=== PATIENT | male | born 1980 | race Caucasian/White ===

== ENCOUNTER 2022-05-19 15:42 | Emergency (ER) | payer MEDICAID, SELFPAY ==
--- NOTE | ~2022-05-19 | US_ITS ---
EXAMINATION: US ABDOMEN LIMITED CLINICAL INFORMATION: Abnormal liver function tests, right upper quadrant. COMPARISON: 12/28/2007 abdominal ultrasound. TECHNIQUE: Real-time imaging of the right upper quadrant abdominal viscera. FINDINGS: PANCREAS: Visualized portions unremarkable. LIVER: Diffuse increased echotexture without focal abnormality. GALLBLADDER: Small radiopaque calculus is seen near the gallbladder neck without mural thickening or pericholecystic fluid. COMMON BILE DUCT: Normal in caliber measuring 0.7 cm in diameter. RIGHT KIDNEY: 11.3 cm. Unremarkable. FREE FLUID: None. US/US abdomen limited IMPRESSION: 1. Hepatic steatosis without focal abnormality. 2. Cholelithiasis without evidence for acute cholecystitis.
[2022-05-19 16:06] VITALS: BP 152/75; PULSE 90; RESP 18; TEMP 36.8; O2SAT 96; BMI 29.0
--- NOTE | 2022-05-19 16:08 | ED_ITS ---
HPI - General Adult General Chief complaint: ETOH/Substance Use <JOSH Louis - Last Filed: 05/19/22 16:10> Stated complaint: Seeking detox <JOSH Louis - Last Filed: 05/19/22 16:10> Time Seen by Provider: 05/19/22 16:54 <JOSH Louis - Last Filed: 05/19/22 16:10> Source: patient and old records reviewed <JOSH Ventura - Last Filed: 05/19/22 17:59> Mode of arrival: ambulatory <JOSH Ventura - Last Filed: 05/19/22 17:59> Limitations: no limitations <JOSH Ventura - Last Filed: 05/19/22 17:59> History of Present Illness HPI narrative: 42 yo male, with past medical history of ETOH abuse and diabetes, who presents to the emergency department today seeking ETOH detox, last drink was today, currently asymptomatic. Patient reports that he he drinks alcohol daily, approximately 20 nips of bourbon, as well as multiple smirnoff ice smash beverages daily and is hoping to find a detox bed at [facility]. Patient reports that he called [facility] today and was instructed to come to the emergency department for further evaluation as they had no available beds today. Patient denies any history of withdrawal seizures in the past. He does admit to having alcohol withdrawal shakiness in the past. He reports that last week he was drinking alcohol and fell, was seen at [facility]. Does admit to having some soreness on his left flank. Denies any abdominal pain, nausea vomiting, diarrhea, headaches, or any other falls. Denies SI/HI. No other complaints or concerns at this time. <JOSH Ventura - Last Filed: 05/19/22 17:59> MD complaint: Etoh Detox <JOSH Ventura - Last Filed: 05/19/22 17:59> Related Data Home medications: Home Medications Medication Instructions Recorded Confirmed albuterol sulfate 90 mcg/actuation 2 puff inhalation Q4H PRN 05/19/22 05/19/22 aerosol inhaler (Ventolin HFA) Shortness Of Breath atorvastatin 10 mg tablet 1 tab PO DAILY 05/19/22 05/19/22 clonidine HCl 0.1 mg tablet 1 tab PO BID PRN anxiety 05/19/22 05/19/22 fluoxetine 20 mg capsule 1 cap PO DAILY 05/19/22 05/19/22 fluticasone propionate 50 1 spray intranasal DAILY 05/19/22 05/19/22 mcg/actuation nasal spray,suspension folic acid 1 mg tablet 1 tab PO DAILY 05/19/22 05/19/22 insulin glargine 100 unit/mL (3 18 unit subcut BEDTIME 05/19/22 05/19/22 mL) subcutaneous pen (Lantus Solostar U-100 Insulin) insulin lispro 100 unit/mL See Protocol subcut TID 05/19/22 05/19/22 subcutaneous solution lisinopril 10 mg tablet 1 tab PO DAILY 05/19/22 05/19/22 magnesium oxide 400 mg (241.3 mg 1 tab PO DAILY 05/19/22 05/19/22 magnesium) tablet multivitamin with folic acid 400 1 tab PO DAILY 05/19/22 05/19/22 mcg tablet (Daily-Deandre (with folic acid)) pantoprazole 40 mg tablet,delayed 1 tab PO BID 05/19/22 05/19/22 release simethicone 125 mg chewable tablet 1 tab PO BID PRN flatulence 05/19/22 05/19/22 (Gas Relief Extra Strength) thiamine HCl (vitamin B1) 100 mg 1 tab PO DAILY 05/19/22 05/19/22 tablet (Vitamin B-1) <JOSH Louis - Last Filed: 05/19/22 16:10> Allergies/adverse reactions: Allergies Allergy/AdvReac Type Severity Reaction Status Date / Time No Known Allergies Allergy Mild UNKNOWN Verified 05/19/22 16:06 <JOSH Louis - Last Filed: 05/19/22 16:10> Review of Systems Review of Systems: Yes all other systems are reviewed and are negative <JOSH Ventura - Last Filed: 05/19/22 17:59> PMF Social History Social History: Social History Advance Directives: No Advance Directives Information Provided: Yes <JOSH Louis - Last Filed: 05/19/22 16:10> Physical Exam ED Vital Signs: Vital Signs - 24 hr 05/19/22 16:06 05/19/22 17:55 Temperature 98.2 F Pulse Rate 90 88 Respiratory Rate 18 16 Blood Pressure 152/75 H 119/60 Pulse Oximetry 96 97 Oxygen Delivery Method Room Air Room Air BMI result Body Mass Index 29.0 <JOSH Louis Last Filed: 05/19/22 16:10> Vital Signs - 24 hr 05/19/22 16:06 05/19/22 17:55 Temperature 98.2 F Pulse Rate 90 88 Respiratory Rate 18 16 Blood Pressure 152/75 H 119/60 Pulse Oximetry 96 97 Oxygen Delivery Method Room Air Room Air BMI result Body Mass Index 29.0 <JOSH Ventura - Last Filed: 05/19/22 17:59> Appearance: Alert. Oriented X3. No acute distress. Appears intoxicated. Eyes: Pupils equal, round and reactive to light. EOMI; ENT: Pharynx normal. Neck: Normal inspection. Neck supple. CVS: Normal heart rate and rhythm. Pulses normal. Respiratory: No respiratory distress. Breath sounds normal. Abdomen: Soft, mild tenderness to the left upper quadrant, no rebound or guarding. +BS x4 Skin: Skin warm and dry. Normal skin color. Normal skin turgor. No rashes. Extremities: No lower extremity edema. Neuro: Oriented X 3. No motor deficit. No sensory deficit. No tremors <JOSH Ventura - Last Filed: 05/19/22 17:59> Course Course Course Narrative: RME performed by Terra Hernandes PA-C. Patient is a 42 year old male presenting to the emergency department requesting alcohol detox. Patient states that he is currently drinking 24 oz of beer and 20+ nips of bourbin. Patient states that he has been drinking today. States that he presented to [facility] today but they said they are out of beds - so they recommended he come to the hospital and stay until tomorrow morning when they can call [facility] and get him a bed. Labs ordered. Patient placed back in the waiting room pending room availability and results. <JOSH oLuis - Last Filed: 05/19/22 16:10> Medical Decision Making Medical Decision Making MDM Narrative: This is a 42-year-old male with a past medical history of ETOH abuse, who presents to the emergency department today seeking detox. Patient has no known history of alcohol withdrawal seizures, and has had alcohol withdrawal symptoms in the past. Patient is currently asymptomatic last drink was earlier today. He typically drinks 20 nips of alcohol and multiple mixed beverages per day. Care team evaluation seen at bedside, and patient agrees to seeking inpatient detox if they have bed. Bed search initiated. Patient with no nausea, vomiting, or abdominal pain, will repeat chemistry tomorrow AM. Will monitor CIWA, med rec ordered. patient placed in physician observation at 06:00PM. <JOSH Ventura - Last Filed: 05/19/22 17:59> Differential Diagnosis Differential Diagnoses: The differential diagnosis associated with the presentation includes <JOSH Ventura - Last Filed: 05/19/22 17:59> Alcohol detox, electrolyte abnormality, dehydration, depression <JOSH Ventura - Last Filed: 05/19/22 17:59> Consult Healthcare Provider Management of the patient was discussed with: Formula Room Worker <JOSH Ventura - Last Filed: 05/19/22 17:59> CARE team <JOSH Ventura - Last Filed: 05/19/22 17:59> Lab Data Result Diagrams: 05/19/22 16:46 05/19/22 16:46 <JOSH Louis - Last Filed: 05/19/22 16:10> Labs: Lab Results 05/19/22 05/19/22 05/19/22 Range/Units 16:46 17:10 17:10 WBC 5.4 (4.8-10.8) X10*3/uL RBC 3.82 L (4.60-5.80) X10*6/uL Hgb 11.3 L (14.0-18.0) g/dl Hct 33.3 L (42.0-52.0) % MCV 87.2 (80.0-98.0) fL MCH 29.6 (27.0-33.0) pg MCHC 33.9 (31.0-36.0) g/dl RDW 21.3 H (11.0-16.0) % Plt Count 215 (160-400) X10*3/uL MPV 11.1 (9.4-12.4) fL Immature Gran % (Auto) 0.6 H (0.0-0.4) % Neut % (Auto) 45.6 (45-73) % Lymph % (Auto) 41.5 H (20-40) % Phillips % (Auto) 8.5 (2-11) % Eos % (Auto) 1.8 (0-4) % Baso % (Auto) 2.0 (0-2) % Lymph # (Auto) 2.3 (1.2-4.9) X10*3/uL Phillips # (Auto) 0.5 (0.1-1.2) X10*3/uL Eos # (Auto) 0.1 (0.0-0.4) X10*3/uL Baso # (Auto) 0.1 (0.0-0.2) X10*3/uL Abs Immat Gran (auto) 0.03 (0.00-0.03) X10*3/uL Absolute Neuts (auto) 2.5 (2.0-8.3) x10*3/uL Absolute Nucleated RBC 0.000 (0.0-0.012) X10*3/uL Nucleated RBC % (auto) 0.0 (0.0-0.2) /100WBC Sodium 137 (135-145) mmol/L Potassium 3.3 (3.3-5.1) mmol/L Chloride 99 (96-108) mmol/L Carbon Dioxide 24 (22-29) mmol/L Anion Gap 17 (12-20) BUN 11 (9-16) mg/dL Creatinine 0.83 (0.5-1.4) mg/dL Estim Creat Clear Calc 113.9 Estimated GFR > 60 Random Glucose 226 H (60-115) mg/dL Calcium 8.9 (8.4-10.2) mg/dL Magnesium 1.5 L (1.6-2.6) mg/dL Total Bilirubin 1.3 H (0.0-1.0) mg/dL AST 280 H (5-37) U/L ALT 150 H (0-40) U/L Alkaline Phosphatase 275 H (39-117) U/L Total Protein 6.9 (6.5-8.0) g/dL Albumin 3.9 (3.5-5.0) g/dL Urine Color Yellow Urine Appearance Clear Urine pH 6.0 (5.0-9.0) Ur Specific [place] 1.015 (1.005-1.025) Urine Protein Trace (Neg-Trace) mg/dL Urine Glucose (UA) >=1000 H (Negative) mg/dL Urine Ketones Negative (Negative) mg/dL Urine Blood Moderate (2+) H (Negative) Urine Nitrite Negative (Negative) Ur Leukocyte Esterase Moderate (2+) H (Negative) Urine RBC >20 H (0-2) /HPF Urine WBC 11-20 H (0-5) /HPF Ur Squamous Epith Cells 3-5 (0-2) /HPF Urine Bacteria None Seen (None Seen) Hyaline Casts 0-2 (0-2) /LPF Salicylates < 5.0 L (15-30) mg/dL Urine Opiates Screen (Not Detect) Urine Fentanyl Screen (Not Detect) Acetaminophen < 17 (<30) mcg/mL Ur Barbiturates Screen (Not Detect) Ur Phencyclidine Scrn (Not Detect) Ur Amphetamines Screen (Not Detect) U Benzodiazepines Scrn (Not Detect) Urine Cocaine Screen (Not Detect) U Marijuana (THC) Screen (Not Detect) Ethyl Alcohol 274 mg/dL 05/19/22 Range/Units 17:10 WBC (4.8-10.8) X10*3/uL RBC (4.60-5.80) X10*6/uL Hgb (14.0-18.0) g/dl Hct (42.0-52.0) % MCV (80.0-98.0) fL MCH (27.0-33.0) pg MCHC (31.0-36.0) g/dl RDW (11.0-16.0) % Plt Count (160-400) X10*3/uL MPV (9.4-12.4) fL Immature Gran % (Auto) (0.0-0.4) % Neut % (Auto) (45-73) % Lymph % (Auto) (20-40) % Phillips % (Auto) (2-11) % Eos % (Auto) (0-4) % Baso % (Auto) (0-2) % Lymph # (Auto) (1.2-4.9) X10*3/uL Phillips # (Auto) (0.1-1.2) X10*3/uL Eos # (Auto) (0.0-0.4) X10*3/uL Baso # (Auto) (0.0-0.2) X10*3/uL Abs Immat Gran (auto) (0.00-0.03) X10*3/uL Absolute Neuts (auto) (2.0-8.3) x10*3/uL Absolute Nucleated RBC (0.0-0.012) X10*3/uL Nucleated RBC % (auto) (0.0-0.2) /100WBC Sodium (135-145) mmol/L Potassium (3.3-5.1) mmol/L Chloride (96-108) mmol/L Carbon Dioxide (22-29) mmol/L Anion Gap (12-20) BUN (9-16) mg/dL Creatinine (0.5-1.4) mg/dL Estim Creat Clear Calc Estimated GFR Random Glucose (60-115) mg/dL Calcium (8.4-10.2) mg/dL Magnesium (1.6-2.6) mg/dL Total Bilirubin (0.0-1.0) mg/dL AST (5-37) U/L ALT (0-40) U/L Alkaline Phosphatase (39-117) U/L Total Protein (6.5-8.0) g/dL Albumin (3.5-5.0) g/dL Urine Color Urine Appearance Urine pH (5.0-9.0) Ur Specific [place] (1.005-1.025) Urine Protein (Neg-Trace) mg/dL Urine Glucose (UA) (Negative) mg/dL Urine Ketones (Negative) mg/dL Urine Blood (Negative) Urine Nitrite (Negative) Ur Leukocyte Esterase (Negative) Urine RBC (0-2) /HPF Urine WBC (0-5) /HPF Ur Squamous Epith Cells (0-2) /HPF Urine Bacteria (None Seen) Hyaline Casts (0-2) /LPF Salicylates (15-30) mg/dL Urine Opiates Screen Not Detected (Not Detect) Urine Fentanyl Screen Not Detected (Not Detect) Acetaminophen (<30) mcg/mL Ur Barbiturates Screen Not Detected (Not Detect) Ur Phencyclidine Scrn Not Detected (Not Detect) Ur Amphetamines Screen Not Detected (Not Detect) U Benzodiazepines Scrn Not Detected (Not Detect) Urine Cocaine Screen Not Detected (Not Detect) U Marijuana (THC) Screen POSITIVE H (Not Detect) Ethyl Alcohol mg/dL <JOSH Louis - Last Filed: 05/19/22 16:10> Lab Results 05/19/22 05/19/22 05/19/22 Range/Units 16:46 17:10 17:10 WBC 5.4 (4.8-10.8) X10*3/uL RBC 3.82 L (4.60-5.80) X10*6/uL Hgb 11.3 L (14.0-18.0) g/dl Hct 33.3 L (42.0-52.0) % MCV 87.2 (80.0-98.0) fL MCH 29.6 (27.0-33.0) pg MCHC 33.9 (31.0-36.0) g/dl RDW 21.3 H (11.0-16.0) % Plt Count 215 (160-400) X10*3/uL MPV 11.1 (9.4-12.4) fL Immature Gran % (Auto) 0.6 H (0.0-0.4) % Neut % (Auto) 45.6 (45-73) % Lymph % (Auto) 41.5 H (20-40) % Phillips % (Auto) 8.5 (2-11) % Eos % (Auto) 1.8 (0-4) % Baso % (Auto) 2.0 (0-2) % Lymph # (Auto) 2.3 (1.2-4.9) X10*3/uL Phillips # (Auto) 0.5 (0.1-1.2) X10*3/uL Eos # (Auto) 0.1 (0.0-0.4) X10*3/uL Baso # (Auto) 0.1 (0.0-0.2) X10*3/uL Abs Immat Gran (auto) 0.03 (0.00-0.03) X10*3/uL Absolute Neuts (auto) 2.5 (2.0-8.3) x10*3/uL Absolute Nucleated RBC 0.000 (0.0-0.012) X10*3/uL Nucleated RBC % (auto) 0.0 (0.0-0.2) /100WBC Sodium 137 (135-145) mmol/L Potassium 3.3 (3.3-5.1) mmol/L Chloride 99 (96-108) mmol/L Carbon Dioxide 24 (22-29) mmol/L Anion Gap 17 (12-20) BUN 11 (9-16) mg/dL Creatinine 0.83 (0.5-1.4) mg/dL Estim Creat Clear Calc 113.9 Estimated GFR > 60 Random Glucose 226 H (60-115) mg/dL Calcium 8.9 (8.4-10.2) mg/dL Magnesium 1.5 L (1.6-2.6) mg/dL Total Bilirubin 1.3 H (0.0-1.0) mg/dL AST 280 H (5-37) U/L ALT 150 H (0-40) U/L Alkaline Phosphatase 275 H (39-117) U/L Total Protein 6.9 (6.5-8.0) g/dL Albumin 3.9 (3.5-5.0) g/dL Urine Color Yellow Urine Appearance Clear Urine pH 6.0 (5.0-9.0) Ur Specific [place] 1.015 (1.005-1.025) Urine Protein Trace (Neg-Trace) mg/dL Urine Glucose (UA) >=1000 H (Negative) mg/dL Urine Ketones Negative (Negative) mg/dL Urine Blood Moderate (2+) H (Negative) Urine Nitrite Negative (Negative) Ur Leukocyte Esterase Moderate (2+) H (Negative) Urine RBC >20 H (0-2) /HPF Urine WBC 11-20 H (0-5) /HPF Ur Squamous Epith Cells 3-5 (0-2) /HPF Urine Bacteria None Seen (None Seen) Hyaline Casts 0-2 (0-2) /LPF Salicylates < 5.0 L (15-30) mg/dL Urine Opiates Screen (Not Detect) Urine Fentanyl Screen (Not Detect) Acetaminophen < 17 (<30) mcg/mL Ur Barbiturates Screen (Not Detect) Ur Phencyclidine Scrn (Not Detect) Ur Amphetamines Screen (Not Detect) U Benzodiazepines Scrn (Not Detect) Urine Cocaine Screen (Not Detect) U Marijuana (THC) Screen (Not Detect) Ethyl Alcohol 274 mg/dL 05/19/22 Range/Units 17:10 WBC (4.8-10.8) X10*3/uL RBC (4.60-5.80) X10*6/uL Hgb (14.0-18.0) g/dl Hct (42.0-52.0) % MCV (80.0-98.0) fL MCH (27.0-33.0) pg MCHC (31.0-36.0) g/dl RDW (11.0-16.0) % Plt Count (160-400) X10*3/uL MPV (9.4-12.4) fL Immature Gran % (Auto) (0.0-0.4) % Neut % (Auto) (45-73) % Lymph % (Auto) (20-40) % Phillips % (Auto) (2-11) % Eos % (Auto) (0-4) % Baso % (Auto) (0-2) % Lymph # (Auto) (1.2-4.9) X10*3/uL Phillips # (Auto) (0.1-1.2) X10*3/uL Eos # (Auto) (0.0-0.4) X10*3/uL Baso # (Auto) (0.0-0.2) X10*3/uL Abs Immat Gran (auto) (0.00-0.03) X10*3/uL Absolute Neuts (auto) (2.0-8.3) x10*3/uL Absolute Nucleated RBC (0.0-0.012) X10*3/uL Nucleated RBC % (auto) (0.0-0.2) /100WBC Sodium (135-145) mmol/L Potassium (3.3-5.1) mmol/L Chloride (96-108) mmol/L Carbon Dioxide (22-29) mmol/L Anion Gap (12-20) BUN (9-16) mg/dL Creatinine (0.5-1.4) mg/dL Estim Creat Clear Calc Estimated GFR Random Glucose (60-115) mg/dL Calcium (8.4-10.2) mg/dL Magnesium (1.6-2.6) mg/dL Total Bilirubin (0.0-1.0) mg/dL AST (5-37) U/L ALT (0-40) U/L Alkaline Phosphatase (39-117) U/L Total Protein (6.5-8.0) g/dL Albumin (3.5-5.0) g/dL Urine Color Urine Appearance Urine pH (5.0-9.0) Ur Specific [place] (1.005-1.025) Urine Protein (Neg-Trace) mg/dL Urine Glucose (UA) (Negative) mg/dL Urine Ketones (Negative) mg/dL Urine Blood (Negative) Urine Nitrite (Negative) Ur Leukocyte Esterase (Negative) Urine RBC (0-2) /HPF Urine WBC (0-5) /HPF Ur Squamous Epith Cells (0-2) /HPF Urine Bacteria (None Seen) Hyaline Casts (0-2) /LPF Salicylates (15-30) mg/dL Urine Opiates Screen Not Detected (Not Detect) Urine Fentanyl Screen Not Detected (Not Detect) Acetaminophen (<30) mcg/mL Ur Barbiturates Screen Not Detected (Not Detect) Ur Phencyclidine Scrn Not Detected (Not Detect) Ur Amphetamines Screen Not Detected (Not Detect) U Benzodiazepines Scrn Not Detected (Not Detect) Urine Cocaine Screen Not Detected (Not Detect) U Marijuana (THC) Screen POSITIVE H (Not Detect) Ethyl Alcohol mg/dL <JOSH Ventura - Last Filed: 05/19/22 17:59> Independent Interpretation I performed an independent interpretation of an: EKG <JOSH Ventura - Last Filed: 05/19/22 17:59> Interpretation: Normal sinus rhythm with ventricular rate of 84 beats per minute, no ST elevation or depression. No acute ischemic changes. <JOSH Ventura Last Filed: 05/19/22 17:59> Social Determinants Patient?s care significantly limited by Social Determinants of Health including: Inadequate housing <JOSH Ventura Last Filed: 05/19/22 17:59> Discharge Plan Discharge Clinical Impression: Alcoholic intoxication, Alcohol dependence <JOSH Louis Last Filed: 05/19/22 16:10> Patient Disposition: Still a Patient <JOSH Louis Last Filed: 05/19/22 16:10> Prescriptions: No Action clonidine HCl 0.1 mg tablet 1 tab PO BID PRN (Reason: anxiety) atorvastatin 10 mg tablet 1 tab PO DAILY thiamine HCl (vitamin B1) [Vitamin B-1] 100 mg tablet 1 tab PO DAILY magnesium oxide 400 mg (241.3 mg magnesium) tablet 1 tab PO DAILY pantoprazole 40 mg tablet,delayed release (DR/EC) 1 tab PO BID lisinopril 10 mg tablet 1 tab PO DAILY simethicone [Gas Relief Extra Strength] 125 mg tablet,chewable 1 tab PO BID PRN (Reason: flatulence) folic acid 1 mg tablet 1 tab PO DAILY insulin lispro 100 unit/mL solution See Protocol subcut TID Protocol: Insulin Correction Scale Less than or equal to 110 ---- Give (units): 0 111 to 150 Give (units): 0 151 to 200 Give (units): 2 201 to 250 Give (units): 4 251 to 300 Give (units): 6 301 to 350 Give (units): 8 Greater than 350 Give (units): 10 Call MD if Blood Glucose > : 350 albuterol sulfate [Ventolin HFA] 90 mcg/actuation HFA aerosol inhaler 2 puff INHALATION Q4H PRN (Reason: Shortness Of Breath) fluoxetine 20 mg capsule 1 cap PO DAILY fluticasone propionate 50 mcg/actuation spray,suspension 1 spray intranasal DAILY insulin glargine [Lantus Solostar U-100 Insulin] 100 unit/mL (3 mL) insulin pen 18 unit subcut BEDTIME multivitamin with folic acid [Daily-Deandre (with folic acid)] 400 mcg tablet 1 tab PO DAILY <JOSH Louis - Last Filed: 05/19/22 16:10>
--- NOTE | 2022-05-19 16:11 | ECG_ITS ---
Test Reason : DETOX, MEDICAL CLEARANCE Blood Pressure : / mmHG Vent. Rate : 084 BPM Atrial Rate : 084 BPM P-R Int : 184 ms QRS Dur : 068 ms QT Int : 370 ms P-R-T Axes : 052 -22 -05 degrees QTc Int : 437 ms Normal sinus rhythm Minimal voltage criteria for LVH, may be normal variant ( R in aVL ) Septal infarct , age undetermined Abnormal ECG When compared with ECG of 07-NOV-2009 08:00, Septal infarct is now Present Inverted T waves have replaced nonspecific T wave abnormality in Inferior leads Referred By: Terra Hernandes Electronically Signed By:Giorgio Yañez
--- NOTE | 2022-05-19 16:46 | PHA.MEDREC ---
Pharmacy Consult ? Medication Reconciliation Pharmacy has completed the medication reconciliation.
[2022-05-19 17:20] LABS: Appearance Urine Clear; Color Urine Yellow; Glucose Urine UA >=1000 mg/dL (Negative); Leukocyte Esterase Urine Moderate (2+) (Negative); Nitrite Urine Negative (Negative); Specific Gravity - Urine 1.015 (1.005-1.025); UMIC TRIGGER UA YES; Urine Blood Moderate (2+) (Negative); Urine Ketones Negative (Negative); Urine Protein Trace mg/dL (Neg-Trace)
[2022-05-19 17:22] LABS: Acetaminophen LAB < 17 mcg/mL (<30); Alanine Aminotransferase 150 U/L (0-40); Albumin Level 3.9 g/dL (3.5-5.0); Alkaline Phosphatase 275 U/L (39-117); Anion Gap 17 (12-20); Aspartate Amino Transferase 280 U/L (5-37); Bilirubin Total 1.3 mg/dL (0.0-1.0); Blood Urea Nitrogen 11 mg/dL (9-16); Calcium 8.9 mg/dL (8.4-10.2); Carbon Dioxide 24 mmol/L (22-29); Chloride 99 mmol/L (96-108); Creatinine Clr Calc Pharmacy 113.9; Estimated Glomerular Filt Rate > 60; Ethanol 274 mg/dL; Glucose Random 226 mg/dL (60-115); Magnesium 1.5 mg/dL (1.6-2.6); Potassium 3.3 mmol/L (3.3-5.1); Salicylate < 5.0 mg/dL (15-30); Sodium 137 mmol/L (135-145); Total Protein 6.9 g/dL (6.5-8.0)
[2022-05-19 17:26] LABS: Basophils Absolute Auto 0.1 X10*3/uL (0.0-0.2); Eosinophils Absolute Auto 0.1 X10*3/uL (0.0-0.4); Eosinophils Percent Auto 1.8 % (0-4); Hematocrit 33.3 % (42.0-52.0); Hemoglobin 11.3 g/dl (14.0-18.0); Imm Gran Abs Auto 0.03 X10*3/uL (0.00-0.03); Imm Gran Pct Auto 0.6 % (0.0-0.4); Lymphocytes Absolute Auto 2.3 X10*3/uL (1.2-4.9); Lymphocytes Percent Auto 41.5 % (20-40); Mean Corpuscular HGB Conc 33.9 g/dl (31.0-36.0); Mean Corpuscular Hemoglobin 29.6 pg (27.0-33.0); Mean Corpuscular Volume 87.2 fL (80.0-98.0); Mean Platelet Volume 11.1 fL (9.4-12.4); Monocytes Absolute Auto 0.5 X10*3/uL (0.1-1.2); Monocytes Percent Auto 8.5 % (2-11); Neutrophils Absolute Auto 2.5 x10*3/uL (2.0-8.3); Neutrophils Percent Auto 45.6 % (45-73); Platelet Count 215 X10*3/uL (160-400); Red Blood Count 3.82 X10*6/uL (4.60-5.80); Red Cell Distribution Width 21.3 % (11.0-16.0); White Blood Count 5.4 X10*3/uL (4.8-10.8)
[2022-05-19 17:49] LABS: Amphetamine Screen Urine Not Detected (Not Detect); Bacteria Urine None Seen (None Seen); Barbiturates, Urine Not Detected (Not Detect); Benzodiazepines Screen Urine Not Detected (Not Detect); Cannabinoid Screen Urine POSITIVE (Not Detect); Cocaine Screen Urine Not Detected (Not Detect); Fentanyl, urine Not Detected (Not Detect); Hyaline Casts Urine 0-2 /LPF (0-2); Opiate Screen Urine Not Detected (Not Detect); Phencyclidine Screen Urine Not Detected (Not Detect); RBC Urine >20 /HPF (0-2)
[2022-05-19 17:55] VITALS: BP 119/60; PULSE 88; RESP 16; O2SAT 97
[2022-05-19 18:34] VITALS: BP 139/82; PULSE 92; RESP 18; TEMP 37.1; O2SAT 95
[2022-05-19 19:04] LABS: Glucose, Whole Blood 256 mg/dL (60-115)
--- NOTE | 2022-05-19 19:31 | MHC.RECOVSUP ---
pt is a 42yr old male who came to the ed for alcohol detox. i went to see pt and was able to help him with the intake with [facility]. Intake was completed and now pt has to call tomorrow to find out when he can go to detox.i spoke to the provider and explained what happen. i also told the care team to call [facility] in the morning to see when pt can go there. the number to call is [phone].
[2022-05-19] MEDS: Magnesium Oxide 400 MG TABLET 800 MG PO (19:46)
[2022-05-19] MEDS: cloNIDine HCL 0.1 MG TABLET PO (19:46)
--- NOTE | 2022-05-19 19:49 | PC.NURSE ---
pt a&ox3, vss, medicated per provider order, pt is currently using insulin pump for humalog, plan to discharge to [facility] tomorrow.
[2022-05-19 20:05] VITALS: BP 149/84; PULSE 92; RESP 19; O2SAT 94
[2022-05-19] MEDS: Insulin Glargine,Hum.rec.anlog 100 UNIT/ML 10 ML VIAL 18 UNIT SUBCUT (21:05)
[2022-05-19] MEDS: Simethicone 80 MG TAB.CHEW PO (21:06)
--- NOTE | 2022-05-19 21:12 | PC.NURSE ---
pt reports that his insulin pump is out of humalog, pt medicated per provider order w sliding scale insulin per MAY.
[2022-05-19 21:14] LABS: Glucose, Whole Blood 285 mg/dL (60-115)
[2022-05-19] MEDS: Insulin Lispro 100 UNIT/ML 3 ML VIAL SUBCUT (21:18)
[2022-05-19 22:48] VITALS: BP 138/70; PULSE 84; RESP 16; O2SAT 96
[2022-05-19 23:47] LABS: Glucose, Whole Blood 51 mg/dL (60-115)
--- NOTE | 2022-05-19 23:54 | PC.NURSE ---
POC 51. Pt aox3 in no apparent distress. Breaths are even, regular and unlabored. Blaine juice and turkey sandwich provided to pt. Will recheck BS in 15 minutes. MLP aware.
--- NOTE | 2022-05-20 00:27 | PC.NURSE ---
Pt aox3 in no apparent distress. Ambulated to the bathroom to move the bowels. POC re-checked after OJ and sandwich. POC 80. MLP aware. Will continue to monitor.
[2022-05-20 00:29] LABS: Glucose, Whole Blood 80 mg/dL (60-115)
[2022-05-20 00:35] VITALS: BP 156/101; PULSE 87; RESP 18; TEMP 36.6; O2SAT 96
--- NOTE | 2022-05-20 00:39 | PC.NURSE ---
CIWA 12 reported to MLP. Will administer Ativan.
[2022-05-20] MEDS: LORazepam 1 MG TABLET 2 MG PO ×2 (00:43→09:34)
[2022-05-20 01:38] VITALS: BP 150/99; PULSE 82; RESP 11; O2SAT 97
--- NOTE | 2022-05-20 02:29 | PC.NURSE ---
Pt aox3 resting at the bedside in no apparent distress. Breaths are even, regular, and unlabored.CIWA 0. Denies SI/HI. Reports left side flank pain, 5/10. Will continue to monitor.
[2022-05-20 03:34] VITALS: BP 136/77; PULSE 81; RESP 15; O2SAT 98
[2022-05-20 04:36] LABS: Glucose, Whole Blood 45 mg/dL (60-115)
[2022-05-20 04:56] LABS: Glucose, Whole Blood 67 mg/dL (60-115)
[2022-05-20 05:14] LABS: Glucose, Whole Blood 131 mg/dL (60-115)
--- NOTE | 2022-05-20 05:18 | PC.NURSE ---
Pt aox3 resting at the bedside in no apparent distress. POC noted to be 45. Pt noted to have an insulin pump attached to the LLQ area of abd. Pt believes insulin pump ran out of insulin and is not working at this time. Insulin pump removed by pt. Tryon juice and tuna sandwich provided with glucose improvement to 131. aware.
[2022-05-20 06:26] VITALS: BP 135/73; PULSE 73; RESP 16; O2SAT 96
[2022-05-20] MEDS: Omeprazole 20 MG CAPSULE.DR PO (06:47)
--- NOTE | 2022-05-20 07:49 | MHC.RECOVRN ---
Left message with [facility] regarding bed availability, awaiting return call.
[2022-05-20 09:23] LABS: Glucose, Whole Blood 359 mg/dL (60-115)
[2022-05-20] MEDS: Folic Acid 1 MG TABLET PO (09:33)
[2022-05-20] MEDS: Insulin Lispro 100 UNIT/ML 3 ML VIAL SUBCUT (09:33)
[2022-05-20] MEDS: Multivitamin TABLET 1 TAB PO (09:34)
[2022-05-20] MEDS: Magnesium Oxide 400 MG TABLET PO ×2 (09:34→12:59)
[2022-05-20] MEDS: Thiamine HCL 100 MG TABLET PO (09:34)
[2022-05-20] MEDS: Atorvastatin Calcium 10 MG TABLET PO (09:34)
[2022-05-20] MEDS: FLUoxetine HCl 20 MG CAPSULE PO (09:34)
[2022-05-20] MEDS: lisinopriL 10 MG TABLET PO (09:34)
[2022-05-20 09:35] VITALS: BP 158/106; PULSE 75; RESP 12; O2SAT 95
--- NOTE | 2022-05-20 09:35 | MHC.RECOVRN ---
Met with pt in ED19 to follow up on desire for ATS. Pt laying in bed, awake, alert, easily engages in conversation. Pt mildly tremulous, slightly diaphoretic. Pt reports drinking 10-20 nips daily as well as at least one 24 oz 8% alcohol beverage x at least a year. Pt reports one ATS admission over a year ago, unable to recall facility but reports it was in the [place] area. Pt is willing to go to any ATS facility.
[2022-05-20 10:07] LABS: Alanine Aminotransferase 135 U/L (0-40); Albumin Level 3.9 g/dL (3.5-5.0); Alkaline Phosphatase 290 U/L (39-117); Anion Gap 17 (12-20); Aspartate Amino Transferase 268 U/L (5-37); Bilirubin Direct 0.7 mg/dL (0.0-0.5); Bilirubin Total 2.3 mg/dL (0.0-1.0); Blood Urea Nitrogen 7 mg/dL (9-16); Carbon Dioxide 25 mmol/L (22-29); Chloride 93 mmol/L (96-108); Creatinine Clr Calc Pharmacy 112.6; Estimated Glomerular Filt Rate > 60; Glucose Random 392 mg/dL (60-115); Magnesium 1.5 mg/dL (1.6-2.6); Potassium 4.4 mmol/L (3.3-5.1); Sodium 131 mmol/L (135-145); Total Protein 6.8 g/dL (6.5-8.0)
[2022-05-20 10:24] VITALS: BP 156/95; PULSE 78; RESP 21; O2SAT 99
[2022-05-20 10:28] LABS: Glucose, Whole Blood 354 mg/dL (60-115)
[2022-05-20 11:58] LABS: IDNOW Serial# BCCEAD1C
[2022-05-20 11:59] LABS: COVID-19 Test Negative (Negative)
--- NOTE | 2022-05-20 12:12 | MHC.RECOVRN ---
While waiting for [facility] to return call, t/w found bed availability at [facility]. Pt hesitant to do phone screen due to distance, however, agreed and was connected to Carmen in intake. Upon checking back in, pt did not complete phone screen as he told intake he would prefer [facility]. Intake then told him to call back if needed. As of this note, still unable to reach admissions at [facility]. Spoke with pt regarding [facility], when asked if pt would be willing to complete phone screen, pt states Fine. Attempted to reach [facility] x 3, can not connect with intake at this time. Referral was sent to [facility], however, have not received call or email back with bed availability. [facility]- no beds [place]- no beds [facility]- no beds [facility]- no beds [facility]- no beds [facility]- left message [place]- left message [facility]- no beds [facility]- no beds
--- NOTE | 2022-05-20 12:41 | MHC.RECOVRN ---
Discussed with provider and RN, pt to dc to community. Provided with list of ATS facilities that have been called and bed statuses. Provided with information on AUD/recovery resources and supports as well as shelters and food [place] as pt reported he has been staying on the streets of [place]. Pt encouraged to continue to call [facility] and other ATS facilities.
[2022-05-20 12:57] LABS: Glucose, Whole Blood 157 mg/dL (60-115)
--- NOTE | 2022-05-20 13:10 | PC.NURSE ---
pt given d/c paperwork, pt also d/c with paperwork on local shelters and detox treatment programs to call. per pt, he is going to replace his dexacome insulin pump
== END 2022-05-20 13:46 | disposition home or self-care (01) ==
PROVIDERS: Physician Assistant; Physician Assistant Medical; Emergency Provider Emergency Medicine; PCP Nurse Practitioner Family
DX: F10.229 Alcohol dependence with intoxication, unspecified (principal); Y90.8 Blood alcohol level of 240 mg/100 ml or more; E11.9 Type 2 diabetes mellitus without complications; Z20.822 Contact with and (suspected) exposure to COVID-19; Z20.828 Contact with and (suspected) exposure to other viral communicable diseases; Z79.899 Other long term (current) drug therapy; Z79.4 Long term (current) use of insulin
CPT/HCPCS: 36415; 76705; 80048; 80053; 80076; 80143; 80179; 80307; 81001; 82077; 82947; 83735; 85025; 87635; 93005; 99285